=== PATIENT | male | born 1995 | race Two or more races ===

== ENCOUNTER 2016-12-04 09:52 | Emergency (ER) | payer MEDICAID ==
[~2016-12-04] VITALS: Ht 170.2 cm; Wt 88.9 kg
[~2016-12-04 09:52] MED LIST: AMOX500C2 PO; IBU600T
[2016-12-04 10:59] VITALS: BP 136/25
== END 2016-12-04 11:35 | disposition home or self-care (01) ==
LOC: ER 09:52
DX: J20.9 Acute bronchitis, unspecified (principal); J02.9 Acute pharyngitis, unspecified; F17.210 Nicotine dependence, cigarettes, uncomplicated; F12.10 Cannabis abuse, uncomplicated

== ENCOUNTER 2017-01-29 09:07 | Emergency (ER) | payer MEDICAID ==
[~2017-01-29] VITALS: Ht 170.2 cm; Wt 88.9 kg
[2017-01-29 09:27] VITALS: BP 137/93
[2017-01-29] MEDS ORDERED: KETOROLAC TROMETH 60MG/2ML VIAL IM ONE (09:45)
== END 2017-01-29 11:31 | disposition home or self-care (01) ==
LOC: ER 09:07
DX: S39.012A Strain of muscle, fascia and tendon of lower back, initial encounter (principal); F17.210 Nicotine dependence, cigarettes, uncomplicated; F12.10 Cannabis abuse, uncomplicated; X58.XXXA Exposure to other specified factors, initial encounter; Y93.89 Activity, other specified; Y92.89 Other specified places as the place of occurrence of the external cause; Y99.8 Other external cause status
CPT/HCPCS: 71020; 72131; 81002; 96372; 99284; J1885

== ENCOUNTER 2017-09-01 09:23 | Emergency (ER) | payer MEDICAID ==
[~2017-09-01] VITALS: Ht 170.2 cm; Wt 84.4 kg
[2017-09-01 10:14] VITALS: BP 133/83
== END 2017-09-01 10:30 | disposition home or self-care (01) ==
LOC: ER 09:23
DX: J32.0 Chronic maxillary sinusitis (principal); J02.9 Acute pharyngitis, unspecified; F17.210 Nicotine dependence, cigarettes, uncomplicated

== ENCOUNTER 2017-12-11 07:57 | Emergency (ER) | payer MEDICAID ==
[~2017-12-11] VITALS: Ht 170.2 cm; Wt 86.2 kg
[2017-12-11 08:07] VITALS: BP 123/86
== END 2017-12-11 08:16 | disposition left against medical advice (07) ==
LOC: ER 07:57
DX: R52 Pain, unspecified (principal); Z53.21 Procedure and treatment not carried out due to patient leaving prior to being seen by health care provider

== ENCOUNTER 2018-09-12 11:46 | Emergency (ER) | payer SELFPAY ==
[~2018-09-12] VITALS: Ht 170.2 cm; Wt 87.5 kg
[2018-09-12 12:24] LABS: Urine Bacteria NONE SEEN /hpf (None Seen); Urine Blood Negative /uL (Negative); Urine Specific Gravity 1.021 (1.001-1.035); Urine WBC 1 /hpf (0 - 3)
[2018-09-12] MEDS ORDERED: SODIUM CHLORIDE 0.9% 1,000 ML IV ONE (13:00)
[2018-09-12] MEDS ORDERED: KETOROLAC TROMETH 30 MG/ML 1ML VIAL IV ONE (13:00)
[2018-09-12] MEDS ORDERED: IOHEXOL 300 MG/ML 100ML BOTTLE IJ ONE ×2 (13:02→13:04)
[2018-09-12 13:09] LABS: Basophils # (auto) 0.1 uL; Basophils % (auto) 0.7 % (0.0-2.0); Eosinophils # (auto) 0 uL; Eosinophils % (auto) 0.6 % (0.0-7.0); Hematocrit 47.4 % (41.0-53.0); Hemoglobin 16.5 g/dL (13.5-17.5); Lymphocytes # (auto) 2.1 uL; Lymphocytes % (auto) 28.8 % (10.0-50.0); Mean Corpuscular Hemoglobin 30.3 pg (28.0-32.0); Mean Corpuscular Hgb Conc. 34.8 g/dL (32.0-36.0); Monocytes # (auto) 0.7 uL; Monocytes % (auto) 8.9 % (0.0-12.0); Neutrophils # (auto) 4.5 uL; Nucleated Red Blood Cells % 0.2 %; Platelet Count (auto) 197 10^3/uL (140-450); Red Blood Cells 5.45 10^6/uL (4.5-5.90); Red Cell Distribution Width 12.7 % (11.8-14.3); White Blood Cell 7.4 10^3/uL (4.4-10.8)
[2018-09-12 13:21] LABS: Albumin 4.4 g/dL (3.4-5.0); BUN/Creatinine Ratio 11.2; Calcium 8.8 mg/dL (8.5-10.1); Potassium 4.2 mmol/L (3.5-5.1)
[2018-09-12 13:23] LABS: Bilirubin, Total 0.5 mg/dL (0.2-1.0); Total Protein 7.8 g/dL (6.4-8.2)
[2018-09-12 13:46] VITALS: BP 106/57
== END 2018-09-12 14:50 | disposition home or self-care (01) ==
LOC: ER 11:46
DX: R10.9 Unspecified abdominal pain (principal); F17.210 Nicotine dependence, cigarettes, uncomplicated; F12.10 Cannabis abuse, uncomplicated
CPT/HCPCS: 36415; 74177; 80053; 81001; 83690; 85025; 96374; 99285; J1885; J7030; Q9967

== ENCOUNTER 2018-09-25 17:41 | Emergency (ER) | payer MEDICAID ==
[~2018-09-25] VITALS: Ht 170.2 cm; Wt 83.9 kg
[2018-09-25 18:27] VITALS: BP 132/82
[2018-09-25] MEDS ORDERED: cefTRIAXone SOD 1,000 MG VL IM ONE (19:00)
[2018-09-25] MEDS ORDERED: HYDROcodone-ACET 7.5/325MG TAB PO ONE (19:00)
== END 2018-09-25 19:25 | disposition home or self-care (01) ==
LOC: ER 17:56
DX: K02.9 Dental caries, unspecified (principal); F17.210 Nicotine dependence, cigarettes, uncomplicated; F15.90 Other stimulant use, unspecified, uncomplicated; Z79.899 Other long term (current) drug therapy
CPT/HCPCS: 96372; 99283; J0696

== ENCOUNTER 2019-07-22 18:30 | Emergency (ER) | payer MEDICAID ==
[~2019-07-22] VITALS: Ht 170.2 cm; Wt 102.1 kg
[2019-07-22 18:43] VITALS: BP 130/89
[2019-07-22] MEDS ORDERED: IBUPROFEN 800 MG TAB PO ONE (22:23)
== END 2019-07-22 22:38 | disposition home or self-care (01) ==
LOC: ER 18:30
DX: M25.512 Pain in left shoulder (principal); R07.81 Pleurodynia; Z79.899 Other long term (current) drug therapy
CPT/HCPCS: 71101

== ENCOUNTER 2019-09-21 06:59 | Emergency (ER) | payer MEDICAID ==
[~2019-09-21] VITALS: Ht 170.2 cm; Wt 99.8 kg
[2019-09-21 07:41] VITALS: BP 135/86
== END 2019-09-21 08:26 | disposition home or self-care (01) ==
LOC: ER 06:59
DX: N50.89 Other specified disorders of the male genital organs (principal); R11.0 Nausea

== ENCOUNTER 2019-10-24 22:45 | Emergency (ER) | payer SELFPAY ==
[~2019-10-24] VITALS: Ht 172.7 cm; Wt 93.0 kg
[2019-10-24 23:17] VITALS: BP 125/79
== END 2019-10-25 00:24 | disposition left against medical advice (07) ==
LOC: ER 22:48
DX: M25.531 Pain in right wrist (principal); R51 Headache; Z53.21 Procedure and treatment not carried out due to patient leaving prior to being seen by health care provider

== ENCOUNTER 2020-07-05 09:46 | Emergency (ER) | payer MEDICAID ==
[~2020-07-05] VITALS: Ht 170.2 cm; Wt 90.7 kg
[2020-07-05 10:03] VITALS: BP 144/81
== END 2020-07-05 11:17 | disposition home or self-care (01) ==
LOC: ER 09:46
DX: K52.9 Noninfective gastroenteritis and colitis, unspecified (principal); F17.210 Nicotine dependence, cigarettes, uncomplicated; Z79.899 Other long term (current) drug therapy
CPT/HCPCS: 71045; 93005

== ENCOUNTER 2022-04-14 09:34 | Emergency (ER) | payer MEDICAID ==
[~2022-04-14] VITALS: Ht 170.2 cm; Wt 93.9 kg
[2022-04-14 09:54] VITALS: BP 129/88
[2022-04-14] MEDS ORDERED: METH750T22 PO (09:59)
[2022-04-14] MEDS ORDERED: IBUP800T27 PO (09:59)
[2022-04-14] MEDS ORDERED: KETOROLAC TROMETH 60MG/2ML VIAL ONE (09:59)
[2022-04-14] MEDS ORDERED: KETOROLAC TROMETH 60MG/2ML VIAL IM ONE (10:00)
== END 2022-04-14 10:22 | disposition home or self-care (01) ==
LOC: ER 09:34
DX: S29.012A Strain of muscle and tendon of back wall of thorax, initial encounter (principal); X50.0XXA Overexertion from strenuous movement or load, initial encounter; Y93.89 Activity, other specified; Y92.89 Other specified places as the place of occurrence of the external cause; Y99.8 Other external cause status
CPT/HCPCS: 96372; 99283; J1885

== ENCOUNTER 2025-08-24 07:26 | Emergency (ER) | payer SELFPAY ==
[~2025-08-24] VITALS: Ht 170.2 cm; Wt 94.8 kg
[~2025-08-24 07:26] MED LIST changes: +IBUP-1456 PO; +METH-1182 PO
[2025-08-24 07:28] VITALS: TEMP 98.3
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
[2025-08-24 08:37] VITALS: BP 126/88; PULSE 79; RESP 18; O2SAT 98
[2025-08-24] MEDS ORDERED: NAPR-746 PO (09:15)
[2025-08-24] MEDS ORDERED: METH-1181 PO (09:15)
[2025-08-24] MEDS: KETOROLAC TROMETH 60MG/2ML VIAL IM ONE (09:42)
== END 2025-08-24 09:42 | disposition home or self-care (01) ==
LOC: ER 07:26
DX: S39.012A Strain of muscle, fascia and tendon of lower back, initial encounter (principal); F12.90 Cannabis use, unspecified, uncomplicated; F10.90 Alcohol use, unspecified, uncomplicated; F17.210 Nicotine dependence, cigarettes, uncomplicated; Z79.899 Other long term (current) drug therapy; X50.9XXA Other and unspecified overexertion or strenuous movements or postures, initial encounter; Y93.89 Activity, other specified; Y92.89 Other specified places as the place of occurrence of the external cause; Y99.8 Other external cause status; Y90.9 Presence of alcohol in blood, level not specified
CPT/HCPCS: 96372; 99283; J1885